=== PATIENT | female | born 1990 ===

== ENCOUNTER 2017-10-05 05:32 | Observation (INO) | payer BC ==
[2017-10-05] MEDS ORDERED: LR 1,000 ML IV ONE (05:48)
[2017-10-05] MEDS ORDERED: LIDOCAINE 1% 2 ML INJ ID PRN (05:48)
[2017-10-05] MEDS ORDERED: MIDAZOLAM 2 MG/2 ML VIAL IVP ONE (06:47)
--- NOTE | 2017-10-05 06:49 | PDANEPAE ---
ANE History of Present Illness lefort/BSSO ANE Past Medical History - Cardiovascular History Hx Hypertension: No Hx Arrhythmias: No Hx Chest Pain: No Hx Coronary Artery / Peripheral Vascular Disease: No Hx CHF / Valvular Disease: No Hx Palpitations: No - Pulmonary History Hx COPD: No Hx Asthma/Reactive Airway Disease: No Hx Recent Upper Respiratory Infection: No Hx Oxygen in Use at Home: No Hx Sleep Apnea: No Sleep Apnea Screening Result - Last Documented: Negative - Neurologic History Hx Cerebrovascular Accident: No Hx Seizures: No Hx Dementia: No - Endocrine History Hx Diabetes: No Obesity: no - Renal History Hx Renal Disorders: No - Liver History Hx Hepatic Disorders: No - Neurological & Psychiatric Hx Hx Neurological and Psychiatric Disorders: No - Cancer History Hx Cancer: No - Congenital Disorder History Hx Congenital Disorders: No - GI History GERD: no Hx Gastrointestinal Disorders: No - Chronic Pain History Chronic Pain: No - Surgical History Prior Surgeries: wisdom teeth extractions ANE Review of Systems Review of systems is: negative Review of Systems: - Exercise capacity METS (RN): 5 METS ANE Patient History - Allergies Allergies/Adverse Reactions: No Known Allergies Allergy (Unverified 09/14/17 14:57) - Home Medications Home medications: home medication list seen and reviewed Home Medications: Loestrin Fe 1-20 Tablet 09/14/17 [Last Taken 10/05/17 05:00] - NPO status NPO Since - Liquids (Date): 10/04/17 NPO Since - Liquids (Time): 22:00 NPO Since - Solids (Date): 10/04/17 NPO Since - Solids (Time): 20:00 - Anes Hx Anes Hx: no prior problems - Smoking Hx Smoking Status: Never smoked ANE Labs/Vital Signs - Vital Signs Blood Pressure: 122/70 Heart Rate: 54 Respiratory Rate: 16 O2 Sat (%): 98 Height: 172.72 cm Weight: 65.771 kg ANE Physical Exam - Airway Neck exam: FROM Mallampati Score: Class 1 Mouth exam: normal dental/mouth exam - Pulmonary Pulmonary: no respiratory distress - Cardiovascular Cardiovascular: regular rate and rhythym - ASA Status ASA Status: I ANE Anesthesia Plan Anesthesia Plan: general endotracheal anesthesia Specialized Airway: nasal intubation
[2017-10-05] MEDS ORDERED: OXYMETAZOLINE 30 ML NASAL SPRAY ONE (06:55)
--- NOTE | 2017-10-05 06:57 | PDHPUP ---
History & Physical Update H&P update statement: This history and physical update is based on an assessment of the patient which was completed after admission or registration (within 24 hours), but prior to the surgery/procedure.
[2017-10-05] MEDS ORDERED: OXYMETAZOLINE 30 ML NASAL SPRAY EACHNARE ONE (06:58)
[2017-10-05] MEDS ORDERED: SCOPOLAMINE HYDROBROMIDE 1 MG/3 DAYS PATCH TD ONE (07:00)
[2017-10-05] MEDS ORDERED: DEXMEDETOMIDINE/NS 4MCG/ML 50 ML BTL IV ONE (07:00)
[2017-10-05] MEDS ORDERED: DEXMEDETOMIDINE IN 0.9 % NACL 50 ML IV ONE (07:00)
[2017-10-05] MEDS ORDERED: fentaNYL 250 MCG/5 ML INJ ONE (07:02)
[2017-10-05] MEDS ORDERED: MINERAL OIL 10 ML VIAL ONE (07:03)
[2017-10-05] MEDS ORDERED: POLYMYXIN B SULFATE 500,000 UNIT/10 ML SYR IRR ONE ×2 (07:03→09:58)
[2017-10-05] MEDS ORDERED: CHLORHEXIDINE GLUCONATE 15 ML UDL ONE (07:03)
[2017-10-05] MEDS ORDERED: BACITRACIN 50,000 UNITS/10 ML SYR IRR ONE ×2 (07:03→09:58)
[2017-10-05] MEDS ORDERED: BUPIVACAINE/EPI 0.5% 30 ML SDV ONE (07:03)
[2017-10-05] MEDS ORDERED: BACITRACIN ZINC 14.2 GM OINTTUBE TP ONE (07:03)
[2017-10-05] MEDS ORDERED: LIDO/EPI 2% **for epidural** 20 ML SDV ONE (07:03)
[2017-10-05] MEDS ORDERED: PROPOFOL/EMULSION 500 MG/50 ML BOTTLE IV ONE ×4 (07:04→11:43)
[2017-10-05] MEDS ORDERED: LIDOCAINE 2% JELLY 5 ML TUBE ONE ×2 (07:07)
[2017-10-05] MEDS ORDERED: AMPICILLIN/SULBACTAM 3 GM in NS 100 ML IV ONE ×2 (07:15→11:15)
[2017-10-05 07:19] LABS: HEMATOCRIT 38.3 % (38.0-47.0); HEMOGLOBIN 13.1 g/dL (12.6-16.3); MEAN CELL HEMOGLOBIN 29.7 pg (27.9-34.1); MEAN CELL HEMOGLOBIN CONCENTR. 34.2 g/dL (32.4-36.7); MEAN CELL VOLUME 86.8 fL (81.5-99.8); RED BLOOD CELL COUNT 4.41 10^6/uL (4.18-5.33); RED CELL DISTRIBUTION WIDTH 13.2 % (11.5-15.2)
[2017-10-05 07:35] LABS: ANION GAP 8 mEq/L (8-16); CALCIUM 9.5 mg/dL (8.5-10.4); CARBON DIOXIDE 29 mEq/l (22-31); CHLORIDE 105 mEq/L (97-110); CREATININE 0.8 mg/dL (0.6-1.0); GLOMERULAR FILTRATION RATE > 60; GLUCOSE 83 mg/dL (70-100); POTASSIUM 4.2 mEq/L (3.5-5.2); SODIUM 142 mEq/L (134-144)
[2017-10-05] MEDS ORDERED: DEXAMETHASONE 4 MG/ML VIAL ONE ×2 (07:58)
[2017-10-05] MEDS ORDERED: HYDROmorphONE/DILAUDID 2 MG/ML INJ ONE (08:07)
[2017-10-05] MEDS ORDERED: ROCURONIUM 100 MG/10 ML VIAL ONE (09:56)
[2017-10-05] MEDS ORDERED: LIDOCAINE 2% 100 MG/5 ML SYR ONE (09:56)
[2017-10-05] MEDS ORDERED: PROMETHAZINE HCL 25 MG/ML INJ IVP PRN (12:24)
[2017-10-05] MEDS ORDERED: ALBUTEROL 3 ML DEYVIAL IH PRN (12:24)
[2017-10-05] MEDS ORDERED: fentaNYL 100 MCG/2 ML INJ IVP PRN (12:24)
[2017-10-05] MEDS ORDERED: LR 500 ML IV PRN (12:24)
[2017-10-05] MEDS ORDERED: HYDROCODONE/APAP 5/325 TAB PO PRN (12:24)
[2017-10-05] MEDS ORDERED: METOCLOPRAMIDE 10 MG/2 ML VIAL IVP PRN (12:24)
[2017-10-05] MEDS ORDERED: ONDANSETRON 4 MG/2 ML VIAL IVP PRN ×2 (12:24→13:44)
[2017-10-05] MEDS ORDERED: OXYCODONE/APAP 5/325 TAB PO PRN (12:24)
[2017-10-05] MEDS ORDERED: NALOXONE HCL 0.4 MG/ML INJ IVP PRN (12:24)
[2017-10-05] MEDS ORDERED: ACETAMINOPHEN 500 MG TAB PO PRN (12:24)
[2017-10-05] MEDS ORDERED: HYDROmorphONE/DILAUDID 1 MG/ML INJ IVP PRN (12:24)
--- NOTE | 2017-10-05 13:42 | POSTOPPROG ---
Post Op Note Date of Operation: 10/05/17 Surgeon: Jean Valenzuela Blindstitch Machine Operator: Elmo Valenzuela Anesthesiologist: Matias Madera Anesthesia: GET(General Endotracheal) (Nasal intubation) Pre-op Diagnosis: Anterior open bite, mandibular aysmetry Post-op Diagnosis: Same Indication: Skeletal and dental deformity Procedure: BSSO, 2-Piece LeFort 1 Findings: None Inf/Abcess present in the surg proc area at time of surgery?: No EBL: 100-500 (150cc) Total fluids administered: 2400mL Complications: none Specimen(s): none
[2017-10-05] MEDS ORDERED: HYDROCOD/APAP 7.5/325 IN 15ML UDCUP PO PRN (13:44)
[2017-10-05] MEDS ORDERED: OXYMETAZOLINE 30 ML NASAL SPRAY EACHNARE PRN (13:44)
[2017-10-05] MEDS ORDERED: SODIUM CL NASAL 45 ML BTL EACHNARE PRN (13:44)
[2017-10-05] MEDS ORDERED: NS W/ 20 KCl/L 1,000 ML IV SCH ×2 (13:45→14:00)
--- NOTE | 2017-10-05 13:59 | POSTANESTH ---
Post Anesthetic Evaluation Cardiovascular Status: Normal, Stable Respiratory Status: Normal, Stable Level of Consciousness/Mental Status: Can Participate in Eval, Alert and Oriented Pain Control: Adequate, Prn Tx Ordered Nausea/Vomiting Control: Adequate, Prn Tx Ordered Complications Possibly Related to Anesthesia: None Noted
--- NOTE | 2017-10-05 15:03 | GOP ---
[f rep st] OPERATIVE REPORT DATE OF OPERATION: 10/05/2017 SURGEON: Jean Valenzuela DDS STEREO PLOTTER OPERATOR: Elmo Valenzuela DDS. ANESTHESIA: General nasotracheal anesthesia. ANESTHESIOLOGIST: Matias Núeñz. PREOPERATIVE DIAGNOSIS: 1. Anterior open bite. 2. Mandibular asymmetry - hemimandibular hypoplasia. POSTOPERATIVE DIAGNOSIS: 1. Anterior open bite. 2. Mandibular asymmetry - hemimandibular hypoplasia. PROCEDURE PERFORMED: 1. Bilateral sagittal split osteotomy. 2. Two-piece LeFort 1 osteotomy with autogenous bone graft. FINDINGS: No significant findings. ESTIMATED BLOOD LOSS: 150 cc. INDICATION FOR OPERATION: The patient is a previously healthy 27-year-old female who was evaluated in clinic and determined to have a skeletal and dental facial deformity requiring orthognathic surgery to correct. She was seen preoperatively where risks, benefits, complications, consequences of the procedure were discussed in detail. Signed and verbal consents were obtained. Written and verbal postoperative instructions, as well as postoperative prescriptions were given to the patient. The patient presented n.p.o. and with an escort today. DESCRIPTION OF PROCEDURE: The patient was brought into the operating room and transferred onto the OR table. Following successful nasotracheal intubation, the patient had corneal Fletcher placed to protect her eyes and the nasotracheal tube was sutured into place. The patient was prepped and draped in a normal sterile fashion. A K-Wire was placed into the nasal radix and an initial vertical from the K-Wire to the orthodontic wire was measured at 73 mm. At the conclusion of the procedure the measurement was 69 mm. The alar base was initially measured at 32 mm and was measured at 33 mm at the conclusion of the procedure. Equilibration of tooth #7, 8, 9 and 12 was performed with a raiza bur under irrigation. Next 10 cc of a mixture of 2% lidocaine with 1:100,000 epinephrine and 0.5% Marcaine with 1:200,000 epinephrine was infiltrated into the maxillary mandibular vestibule. A throat screen was placed. First attention was turned to the right mandibular ramus. A bite block was placed and Bovie electrocautery was used to perform a ramus exposing incision. The medial and lateral aspect of the mandible were exposed with subperiosteal dissection. The mandibular foramen was identified with a nerve hook and the osteotomies were performed in the following sequential fashion. A guarded reciprocating saw was used to perform the horizontal aspect of the osteotomy, next the unguarded saw was used to perform the sagittal aspect of the osteotomy , carrying it forth to between the mandibular 1st and 2nd molar. Next the guarded saw blade was used to perform the vertical osteotomy, continuing it through the inferior border of the mandible. A hemostatic sponge was placed into the right mandibular vestibule and the identical dissection and osteotomy was performed in the left mandibule. Attention was then turned to the maxilla where a circumvestibular incision was performed and subperiosteal dissection was completed to expose the maxillary skeleton, posteriorly to the lateral pterygoid plates. The nasal mucosa was then dissected free as well as the nasal septum. The mucosa was protected with a periosteal elevator while the LeFort 1 osteotomy was completed with the reciprocating saw. This was performed bilaterally and then the osteotomy was redefined with lateral nasal septal chisels, a guarded nasal chisel to separate the septum and a pterygoid chisel bilaterally. The segmental osteotomy cut was performed between tooth #6 and #7 using a mallet and osteotome to initially define the cut which was then completed with the piezoelectric through the maxillary palatal bone. The maxilla was then down fractured and the remainder of the segmental osteotomy was completed through the right nasal floor with the piezoelectric. The lateral nasal wall was reduced as well as the bony septum with a rongeur and watermelon bur under copious irrigation. The final splint was then wired into the maxilla with 26g wires, ensuring passive seating of the maxillary segments. The intermediate splint was then used to put the patient into maxillomandibular fixation. The maxillary bony interferences were then reduced with a watermelon bur under copious irrigation and rongeur until passive seating of the LeFort 1 osteotomy could be performed. The bony septum was reduced with a watermelon bur to ensure that the septum was passively seated. The vertical at the conclusion of the bony reduction was 69 mm, which was consistent with the preoperative plan. The 4 KLS 1.5 mm bone plates were then contoured to the piriform rim and zygoma bilaterally and used to secure the maxilla in place with 5mm monocortical screws. The bony osteotomy gap between tooth #6 and #7 was filled with autogenous bone that was harvested while reducing the bony interferences in the maxilla. The patient was released from IMF. An alar cinch was performed with a 3-0 Ethibond suture. V-Y closure of 0.5 cm was performed with 4-0 chromic gut suture and the circumvestibular incision was closed with a 4-0 chromic gut running locking suture. Attention was then turned back to the mandible where the osteotomy on the right and left were completed with osteotome and mallet as well as Elmore cell stripper and inferior border splitter. The inferior alveolar nerve was not noted to be trapped in the proximal segment. The bony segments were freely mobilized and the patient was placed into her final surgical splint and into maxillomandibular fixation with 26g wire. The left proximal segment was noted to have an overlap of approximately 2-3 mm, which was removed with a reciprocating saw under irrigation. The left proximal segment was then passively seated into the condylar fossa and a Bonsall clamp was used to stabilize the segment. The external oblique ridge was reduced with a watermelon bur under irrigation and the proximal and distal segment were secured in place with a 2 mm Synthes dog bone plate using 5 mm monocortical screws. Attention was then turned back to the right side where the proximal segment was seated, no bony interference was noted and the identical plate and screws were used to secure the proximal and distal segment in place once it was noted the proximal segment was passively seated. The patient was released from intermaxillary fixation and the final occlusion was verified. Throat screen was removed and the left and right ramus exposing incisions were closed with 4-0 chromic gut running locking suture. A 10 cc of a mixture of 2% lidocaine with 1:100,000 epinephrine and 0.5% Marcaine with 1: 200,000 epinephrine was infiltrated into the maxillary mandibular vestibule. The patient was allowed to awake from anesthesia. Her gastric contents were evacuated with a nasogastric suction and the patient was placed into intermaxillary fixation with 2 orthodontic elastic rubber bands. The patient was transferred to the PACU in stable condition. TOTAL FLUIDS ADMINISTERED: 2400 cc. DISPOSITION: The patient will be admitted overnight for observation. We will consider discharge tomorrow to our office for x-rays. /[id number]/MODL MTDD
[2017-10-05] MEDS ORDERED: HYDROmorphONE/DILAUDID 1 MG/ML INJ ONE (16:13)
[2017-10-05] MEDS ORDERED: KETOROLAC 30 MG/1 ML SDV ONE (18:16)
[2017-10-05] MEDS: KETOROLAC 30 MG/1 ML SDV IVP SCH (18:18)
--- NOTE | 2017-10-05 20:09 | SOAPPROG ---
SOAP Progress Note Assessment/Plan: Assessment: Isabela is POD #0 s/p BSSO and 2-piece LeFort. The patient is doing well Plan: - Transition to PO pain medication - Increase PO intake - If the patient has not voided by tomorrow morning will do an IO cath - Ambulation QID with assist - Ice to face x 48 hours - Start oral hygiene - consider D/C to home tomorrow. Would D/C the patient to the office for post operative x-rays 10/05/17 20:04 Subjective: Isabela is POD #0 s/p BSSO and 2-piece LeFort. The patient has not voided, taken PO or ambulated. She has not required any narcotic pain medication. Pain is 3/10. Objective: Vital Signs Temp Pulse Resp BP Pulse Ox 37.7 C 88 16 117/68 100 10/05/17 13:55 10/05/17 13:55 10/05/17 19:00 10/05/17 19:00 10/05/17 19:46 Laboratory Results 10/05/17 07:10 10/05/17 07:10 10/04/17 10/05/17 10/06/17 05:59 05:59 05:59 Intake Total 3000 Balance 3000 Heart: NR/RR, Lungs: CTAB. HEENT: PEERL, the patient does have some pain in her left eye, possible scratched cornea. Maxillary mucosa well perfused, midlines coincident, splint in place, V2 hypesthesia, V3 normal sensation, ice to face, significant upper lip swelling consistent with surgery, nasal septum midline, no difficulty breathing, nares patent. - Time Spent With Patient Time Spent With Patient: 30 minutes - Pending Discharge Pending Discharge Within 24 Hours: Yes Pending Discharge Date: 10/06/17 Pending Discharge Time: 11:00 ICD10 Worksheet Patient Problems: Problems Problem Status Onset Anterior open bite Acute Mandibular asymmetry Acute - ICD10 Problem Qualifiers (1) Mandibular asymmetry (2) Anterior open bite
[2017-10-05] MEDS: AMPICILLIN/SULBACTAM 1.5 GM in NS 50 ML IV SCH ×2 (21:41→21:44)
[2017-10-05] MEDS: PSEUDOEPHEDRINE LIQ 30 MG/10 ML UDSYR PO SCH (21:46)
[2017-10-05] MEDS: DEXAMETHASONE 4 MG/ML VIAL IVP SCH ×2 (21:50→23:09)
[2017-10-05] MEDS: FLUTICASONE NASAL 120 SPRAYS/16 GM MDI EACHNARE SCH (21:50)
[2017-10-05] MEDS: CHLORHEXIDINE GLUCONATE 15 ML UDL PO SCH (21:50)
[2017-10-06] MEDS: KETOROLAC 30 MG/1 ML SDV IVP SCH ×3 (00:30→12:11)
[2017-10-06] MEDS: AMPICILLIN/SULBACTAM 1.5 GM in NS 50 ML IV SCH ×4 (03:38→11:41)
[2017-10-06] MEDS: DEXAMETHASONE 4 MG/ML VIAL IVP SCH (06:02)
[2017-10-06] MEDS ORDERED: PATCH REMOVAL 1 EA PATCH TD ONE (06:48)
--- NOTE | 2017-10-06 07:11 | SOAPPROG ---
SOAP Progress Note Assessment/Plan: Assessment: Isabela is POD #1 s/p BSSO and 2-piece LeFort. The patient is doing well Plan: - Transition to PO pain medication - Continue PO intake - Ambulation QID with assist - Ice to face x 48 hours - Start oral hygiene - D/C to home today at noon. Would D/C the patient to the office for post operative x-rays 10/05/17 20:04 10/06/17 07:09 Subjective: Isabela is POD #1 s/p BSSO and 2-piece LeFort. Patient has 2/10 pain, she has not taken the narcotic. She has voided several times and is taking good PO. She has been ambulating. Objective: Vital Signs Temp Pulse Resp BP Pulse Ox 36.8 C 81 16 115/60 99 10/06/17 03:43 10/06/17 03:43 10/06/17 03:43 10/06/17 03:43 10/06/17 03:43 Laboratory Results 10/05/17 07:10 10/05/17 07:10 10/05/17 10/06/17 10/07/17 05:59 05:59 05:59 Intake Total 4081 207 Balance 4081 207 Unchanged since last night - Pending Discharge Pending Discharge Within 24 Hours: Yes Pending Discharge Date: 10/06/17 Pending Discharge Time: 12:00 ICD10 Worksheet Patient Problems: Problems Problem Status Onset Anterior open bite Acute Mandibular asymmetry Acute - ICD10 Problem Qualifiers (1) Mandibular asymmetry (2) Anterior open bite
[2017-10-06 07:32] VITALS: BP 114/59; PULSE 55; RESP 20; TEMP 97.5; O2SAT 96
[2017-10-06] MEDS: FLUTICASONE NASAL 120 SPRAYS/16 GM MDI EACHNARE SCH (09:35)
[2017-10-06] MEDS: PSEUDOEPHEDRINE LIQ 30 MG/10 ML UDSYR PO SCH (09:37)
[2017-10-06] MEDS: CHLORHEXIDINE GLUCONATE 15 ML UDL PO SCH (09:38)
--- NOTE | 2017-10-06 10:21 | ASMTCMCOM ---
CM Note CM Note Notes: Spoke w/RN, anticipate pt will dc home w/support of family when medically stable. CM available for any changes. Date Signed: 10/06/2017 10:21 AM Electronically Signed By:Anne-Marie Morrison RN
[2017-10-06] MEDS ORDERED: DEXAMETHASONE 4 MG/ML VIAL IVP SCH (11:45)
--- NOTE | 2017-10-06 17:53 | ASDISCHSUM ---
Discharge Information Plan Status:Home with No Needs Medically Cleared to Leave: Discharge Date:10/06/2017 12:22 PM CM D/C Disposition: ADT D/C Disposition:Home, Routine, Self-Care Projected Discharge Date:10/06/2017 12:22 PM Transportation at D/C: Discharge Delay Reason: Follow-Up Date:10/06/2017 12:22 PM Discharge Slot: Final Diagnosis: Placement Information Patient Contact Information Contact Name:DON Relationship:Father Address:[address] [place] [address] City:[place] Alternate Phone: [facility]/Zip Code:[place] [address] Email: Financial Information Financial Class:HMO and PPO Plans Primary Plan Desc: OUT OF STATE PPO Primary Plan Number:[id number] Secondary Plan Desc: Secondary Plan Number: Assessment Information BC CM Progress Note CM Note CM Note Notes: Spoke w/RN, anticipate pt will dc home w/support of family when medically stable. CM available for any changes. Date Signed: 10/06/2017 10:21 AM Electronically Signed By:Anne-Marie Morrison RN Intervention Information
== END 2017-10-06 12:22 | disposition home or self-care (01) ==
LOC: F3N 05:32 → EDSTATUS 09:15 → F3E 18:33
PROVIDERS: ADMIT Dentist Oral and Maxillofacial Surgery; ATTEND Dentist Oral and Maxillofacial Surgery
DX: M26.220 Open anterior occlusal relationship (principal); M26.12 Other jaw asymmetry; M26.03 Mandibular hyperplasia
CPT/HCPCS: 21146; 21196; G0378; C1713; J0295; J1100; J1170; J1885; J2001; J2250; J2704; J3010